=== PATIENT | male | born 1985 | race Caucasian/White ===

== ENCOUNTER 2025-05-05 16:40 | Emergency (ER) | payer OTHER ==
[~2025-05-05] VITALS: Ht 172.7 cm; Wt 114.0 kg
[2025-05-05 16:43] VITALS: O2SAT 98
[2025-05-05] MEDS: LIDOCAINE HCL 1% 20ML VIAL INFIL ONE (17:15)
[2025-05-05 19:13] VITALS: BP 152/106; PULSE 75; RESP 18; TEMP 36.8; O2SAT 98
== END 2025-05-05 19:21 | disposition home or self-care (01) ==
LOC: ER 16:40
DX: S01.81XA Laceration without foreign body of other part of head, initial encounter (principal); E78.00 Pure hypercholesterolemia, unspecified; I10 Essential (primary) hypertension; W25.XXXA Contact with sharp glass, initial encounter; Y93.89 Activity, other specified; Y92.89 Other specified places as the place of occurrence of the external cause; Y99.8 Other external cause status
CPT/HCPCS: 12052; 99284; Z7610; 12042